=== PATIENT | male | born 1965 | race African-American/Black ===

== ENCOUNTER 2017-04-16 11:28 | Day surgery (SDC) | payer OTHER ==
[2017-04-09 12:42] VITALS: BMI 33.6
[~2017-04-16 11:28] MED LIST: ACETAMINOPHEN 325 MG TABLET (FP) PO PRN; CYCLOPENTOLATE HCL 1% OPHTH SOLN 2 ML BOTTLE OD SCH; GENTAMICIN SULFATE 0.3% OPHTHALMIC (EYE DROPS) 5ML BOTTLE OD SCH; KETOROLAC TROMETHAMINE 0.5% 5 ML BOTTLE OPTHALMIC OD SCH; PHENYLEPHRINE 2.5% OPHTH SOLN 15 ML BOTTLE OD SCH; TROPICAMIDE 1% OPHTH SOLN 15 ML BOTTLE OD SCH
[2017-04-16] MEDS: PHENYLEPHRINE 2.5% OPHTH SOLN 15 ML BOTTLE ONE ×5 (12:15→12:35)
[2017-04-16] MEDS: KETOROLAC TROMETHAMINE 0.5% 5 ML BOTTLE OPTHALMIC ONE ×5 (12:15→12:35)
[2017-04-16] MEDS: CYCLOPENTOLATE HCL 1% OPHTH SOLN 2 ML BOTTLE ONE ×5 (12:15→12:35)
[2017-04-16] MEDS: GENTAMICIN SULFATE 0.3% OPHTHALMIC (EYE DROPS) 5ML BOTTLE ONE ×5 (12:15→12:35)
[2017-04-16] MEDS: TROPICAMIDE 1% OPHTH SOLN 15 ML BOTTLE ONE ×5 (12:15→12:35)
[2017-04-16] MEDS ORDERED: BETAXOLOL HCL 0.25% OPHTHALMIC 10 ML DROPSBTL ONE (12:36)
[2017-04-16] MEDS ORDERED: TRYPAN BLUE 0.5 ML DISP.SYRIN ONE (12:36)
[2017-04-16] MEDS ORDERED: BUPIVACAINE HCL/PF 0.5% (5MG/ML) 10 ML VIAL ONE (12:37)
[2017-04-16] MEDS ORDERED: POVIDONE-IODINE 5% OPHTHALMIC PREP 30 ML SOLUTION ONE (12:37)
[2017-04-16] MEDS ORDERED: BSS (NA/CA/MG/K) BALANCED SALT SOLUTION OPHTH SOLN 15 ML BOTTLE ONE (12:37)
[2017-04-16] MEDS ORDERED: LIDOCAINE HCL 2% (20ML MULTI-DOSE VIAL) NR ONE (12:37)
[2017-04-16] MEDS ORDERED: CARBACHOL 0.01% INTRA-OCULAR 1.5 ML VIAL ONE (12:38)
[2017-04-16] MEDS ORDERED: ACETYLCHOLINE 1:100 INTRA-OCUL 20 MG/2 ML KIT ONE (12:38)
[2017-04-16] MEDS ORDERED: NEO/POLYMYX B SULF/DEXAMETH OPHTHALMIC 5ML BOTTLE ONE (12:38)
[2017-04-16] MEDS ORDERED: LIDOCAINE HCL/PF 2% SDV 5ML VIAL ONE ×2 (12:39→12:54)
[2017-04-16] MEDS ORDERED: PROPOFOL 20 ML ONE (12:54)
[2017-04-16] MEDS ORDERED: KETOROLAC TROMETHAMINE 30 MG/1 ML VIAL ONE (12:54)
[2017-04-16] MEDS ORDERED: MIDAZOLAM HCL 2 MG/2 ML SINGLE DOSE VIAL ONE (12:54)
[2017-04-16 14:13] VITALS: TEMP 98.3
[2017-04-16 14:41] VITALS: BP 140/91; PULSE 72
--- NOTE | 2017-04-16 14:42 | OP ---
DATE OF OPERATION: 04/16/2017 AGE: [age] years old. SEX: Male. PREOPERATIVE DIAGNOSIS: Hypermature cataract, right eye. POSTOPERATIVE DIAGNOSIS: Hypermature cataract, right eye. PROCEDURE: Hypermature cataract extraction via phacoemulsification with use of trypan blue and insertion of posterior chamber lens implant, right eye. SURGEON: Laz Correa MD PLEASURE CRAFT SAILOR: Mae Gotti MD ANESTHESIA: Regional with sedation. ESTIMATED BLOOD LOSS: Less than 1 mL. COMPLICATIONS: None. SPECIMENS: None. DESCRIPTION OF PROCEDURE: The patient was identified in the holding area. After all risks, benefits, and alternatives were explained to the patient, informed consent was obtained. The right eye was marked with a marking pen. The patient then entered the operating room on an eye stretcher. After a formal timeout was performed, a 3-mL injection of equal parts of 2% lidocaine with epinephrine and 0.5% Marcaine was given around the right eye. The right eye was then prepped and draped in the usual sterile fashion. An eyelid speculum was placed beneath the eyelids of the right eye. A superotemporal paracentesis incision was created using a 15-degree blade. Intracameral air was then injected, and trypan blue was then injected into the anterior chamber to stain the anterior capsule. Balanced saline solution was then used to wash any excess trypan blue and air bubble out of the anterior chamber. Viscoelastic was then injected to reform the anterior chamber. A 2.4-mm keratome blade was then used to make an inferotemporal incision. A 360-degree, continuous curvilinear capsulorrhexis was then created using bent cystotome and Utrata forceps. Gentle hydrodissection was performed with balanced saline solution on a cannula. Phacoemulsification was introduced to disassemble and remove the nucleus in its entirety. Irrigation/aspiration was then used to remove any remaining cortical material from the eye. The capsular bag was then refilled using viscoelastic. An Fabio model [id number] with a power of 17.5 diopters, serial number [id number] was inspected and found to be defect free and injected into the capsular bag. Irrigation/aspiration was then used to remove any remaining viscoelastic from the eye. The anterior chamber was reformed using balanced saline solution. Intracameral Miochol and Miostat were then administered to the right eye, and the pupil came down and was round. All wounds were hydrated with balanced saline solution and noted to be watertight. The anterior chamber was deep. There was red reflex present. The eye had an adequate pressure, and the lens was perfectly centered in the capsular bag. Topical antibiotic eye drops and ointment were then administered to the right eye. The eyelid speculum was removed from the right eye. The right eye was patched and shielded. The patient tolerated the procedure well and left the operating room in stable condition to follow up in the eye clinic tomorrow morning at 9:00. LAZ CORREA M.D. [id number]
== END 2017-04-16 14:55 | disposition home or self-care (01) ==
LOC: FASU 11:28
PROVIDERS: ATTEND Ophthalmology
PROC: 08RJ3JZ Replacement of Right Lens with Synthetic Substitute, Percutaneous Approach (ICD-10-PCS; principal; 2017-04-16 13:15)
DX: H25.21 Age-related cataract, morgagnian type, right eye (principal)

== ENCOUNTER 2017-05-14 09:45 | Day surgery (SDC) | payer OTHER ==
[2017-05-07 09:33] VITALS: BMI 34.0
[~2017-05-14 09:45] MED LIST changes: -CYCLOPENTOLATE HCL 1% OPHTH SOLN 2 ML BOTTLE OD SCH; +CYCLOPENTOLATE HCL 1% OPHTH SOLN 2 ML BOTTLE OS SCH; -GENTAMICIN SULFATE 0.3% OPHTHALMIC (EYE DROPS) 5ML BOTTLE OD SCH; +GENTAMICIN SULFATE 0.3% OPHTHALMIC (EYE DROPS) 5ML BOTTLE OS SCH; -KETOROLAC TROMETHAMINE 0.5% 5 ML BOTTLE OPTHALMIC OD SCH; +KETOROLAC TROMETHAMINE 0.5% 5 ML BOTTLE OPTHALMIC OS SCH; -PHENYLEPHRINE 2.5% OPHTH SOLN 15 ML BOTTLE OD SCH; +PHENYLEPHRINE 2.5% OPHTH SOLN 15 ML BOTTLE OS SCH; -TROPICAMIDE 1% OPHTH SOLN 15 ML BOTTLE OD SCH; +TROPICAMIDE 1% OPHTH SOLN 15 ML BOTTLE OS SCH
[2017-05-14] MEDS ORDERED: PROPOFOL 20 ML ONE (09:49)
[2017-05-14] MEDS: TROPICAMIDE 1% OPHTH SOLN 15 ML BOTTLE ONE ×5 (10:20→10:40)
[2017-05-14] MEDS: PHENYLEPHRINE 2.5% OPHTH SOLN 15 ML BOTTLE ONE ×5 (10:20→10:40)
[2017-05-14] MEDS: KETOROLAC TROMETHAMINE 0.5% 5 ML BOTTLE OPTHALMIC ONE ×5 (10:20→10:40)
[2017-05-14] MEDS: GENTAMICIN SULFATE 0.3% OPHTHALMIC (EYE DROPS) 5ML BOTTLE ONE ×5 (10:20→10:40)
[2017-05-14] MEDS: CYCLOPENTOLATE HCL 1% OPHTH SOLN 2 ML BOTTLE ONE ×5 (10:20→10:40)
[2017-05-14] MEDS ORDERED: MIDAZOLAM HCL 2 MG/2 ML SINGLE DOSE VIAL ONE ×3 (10:29→13:13)
[2017-05-14] MEDS ORDERED: ONDANSETRON 4 MG/2 ML VIAL IVPUSH PRN (10:40)
[2017-05-14] MEDS ORDERED: ACETYLCHOLINE 1:100 INTRA-OCUL 20 MG/2 ML KIT ONE (10:43)
[2017-05-14] MEDS ORDERED: BUPIVACAINE HCL/PF 0.5% (5MG/ML) 10 ML VIAL ONE (10:43)
[2017-05-14] MEDS ORDERED: LIDOCAINE HCL/PF 2% SDV 5ML VIAL ONE ×2 (10:43→11:14)
[2017-05-14] MEDS ORDERED: LACTATED RINGERS SOLUTION 1,000 ML IV SCH (10:45)
[2017-05-14] MEDS ORDERED: TRYPAN BLUE 0.5 ML DISP.SYRIN ONE (10:55)
[2017-05-14] MEDS ORDERED: BSS (NA/CA/MG/K) BALANCED SALT SOLUTION OPHTH SOLN 15 ML BOTTLE ONE (12:09)
[2017-05-14 14:00] VITALS: TEMP 98.4
[2017-05-14 15:18] VITALS: BP 103/61; PULSE 56
--- NOTE | 2017-05-15 10:32 | OP ---
DATE OF OPERATION: 05/14/2017 PREOPERATIVE DIAGNOSIS: Hypermature cataract, left eye. 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 PROCEDURE: Hypermature cataract extraction via phacoemulsification with use of trypan blue and iris hooks, anterior vitrectomy, and insertion of anterior chamber lens implant, left eye. SURGEON: Laz Correa MD CERAMIC DESIGN ENGINEER: Mae Gotti MD ANESTHESIA: Regional with sedation. ESTIMATED BLOOD LOSS: Less than 1 mL. COMPLICATIONS: None. SPECIMENS: None. DESCRIPTION OF PROCEDURE: The patient was identified in the holding area. After all risks, benefits, and alternatives were explained to the patient, informed consent was obtained. The left eye was marked with a marking pen. The patient then entered the operating room on an eye stretcher. After a formal time-out was performed, a 3-mL injection of equal parts 2% lidocaine with epinephrine and 0.5% Marcaine was given around the left eye. The left eye was then prepped and draped in the usual sterile fashion. An eyelid speculum was placed beneath the eyelids of the left eye. An inferotemporal paracentesis incision was created using a 15-degree blade, and upon inspection, an area of zonulysis was noted from about 6 o'clock to 9 o'clock with vitreous prolapse. An air bubble was injected to the anterior chamber and trypan blue was used to stain the anterior capsule. Balanced saline solution was used to remove the air bubble and any remaining trypan blue from the anterior chamber. Viscoelastic was used to refill the anterior chamber, and then, 5 equally spaced iris hooks were then placed around the eye, 360 degrees, to capture and dilate the pupil to about 5.5 to 6.0 mm. A 2.4-mm keratome blade was then used to make a superotemporal incision. Bent cystotome and Utrata forceps were then used to make a 360-degree continuous curvilinear capsulorrhexis. Central hydrodissection was performed with balanced saline solution on a cannula. Phacoemulsification was introduced to disassemble and remove the nucleus in its entirety. Upon inspection, there appeared to be vitreous prolapse in the area between 6 and 9 o'clock. Therefore, a thorough anterior vitrectomy was done making sure to clear away any vitreous that had prolapsed forward. The wounds were continually checked with Weck-Jamia to check for any presence of vitreous. At the end of the anterior vitrectomy, there was no vitreous noted to be present at the wound edges. Then, intracameral Miochol was administered, and the pupil came down and was round. Then, the main wound was expanded to about 6 mm in length, and an Fabio model [id number] with a power of 15.0 diopters was inspected and found to be defect-free and placed into the anterior chamber making sure that each of the haptics were placed correctly in the angle and the optic centered appropriately. A peripheral iridectomy was created using Colibri forceps and Vannas scissors and was noted to be patent with a clear red reflex. The wound was sealed using interrupted 10-0 nylon sutures and all knots were buried. Upon inspection, the anterior chamber was deep, there was no vitreous present in the anterior chamber. All wounds were checked with a Weck-Jamia for presence of vitreous, and there was no presence of vitreous at any of the wound edges. The pupil was round. The anterior chamber lens was perfectly centered in the anterior chamber. There was red reflex present, and the eye had an adequate pressure. Topical antibiotic eye drops and ointment were then administered through the left eye. The eyelid speculum was removed from the left eye. The left eye was patched and shielded. The patient tolerated the procedure well and left the operating room in stable condition to follow up in the eye clinic tomorrow morning at 9:30. LAZ CORREA M.D. [id number]
== END 2017-05-14 15:05 | disposition home or self-care (01) ==
LOC: FASU 09:45
PROVIDERS: ATTEND Ophthalmology
PROC: 08T53ZZ Resection of Left Vitreous, Percutaneous Approach (ICD-10-PCS; 2017-05-14)
PROC: 08RK3JZ Replacement of Left Lens with Synthetic Substitute, Percutaneous Approach (ICD-10-PCS; principal; 2017-05-14 11:21)
DX: H25.22 Age-related cataract, morgagnian type, left eye (principal); H43.02 Vitreous prolapse, left eye